=== PATIENT | female | born 1985 | race Caucasian/White ===

== ENCOUNTER 2016-10-11 13:46 | Emergency (ER) | payer OTHER ==
[~2016-10-11] VITALS: Ht 160 cm; Wt 99.0 kg
[~2016-10-11 13:46] MED LIST: ACDPT PO; AMOX500C5 PO; AZIT250T PO; BENZ-22 PO; CEPH-331 PO; HYDR-3702 PO; HYDR-3881 PO; IBUP-788 PO; IBUP-792 PO; IBUP200C11 PO; NO HOME MEDS; PRM25T PO
[2016-10-11] MEDS ORDERED: HYDR-33 PO (15:13)
[2016-10-11] MEDS ORDERED: KETOROLAC 60 MG/2 ML (TORADOL) VIAL IM ONE (15:15)
[2016-10-11 15:58] VITALS: BP 119/78
== END 2016-10-11 15:57 | disposition home or self-care (01) ==
LOC: EDUNIT# 13:46 → ED 13:48
DX: M54.5 Low back pain (principal)
CPT/HCPCS: 96372; 99282; J1885